=== PATIENT | female | born 1990 | race Native Hawaiian/Other Pacific Islander ===

== ENCOUNTER 2018-09-10 08:16 | Emergency (ER) | payer OTHER ==
[~2018-09-10] VITALS: Ht 160 cm; Wt 77.1 kg
[2018-09-10 09:03] LABS: PLATELET COUNT 428 K/uL (152-353)
[2018-09-10 09:07] LABS: POTASSIUM 3.8 mmol/L (3.6-5.2)
[2018-09-10 11:30] VITALS: BP 119/68; TEMP 97.9
== END 2018-09-10 11:33 | disposition home or self-care (01) ==
LOC: ED 08:16
PROVIDERS: Family Medicine
DX: O23.33 Infections of other parts of urinary tract in pregnancy, third trimester (principal); B96.20 Unspecified Escherichia coli [E. coli] as the cause of diseases classified elsewhere; D72.828 Other elevated white blood cell count
CPT/HCPCS: 36415; 80048; 81000; 85027; 87077; 87086; 87088; 87186; 96360; 96361; 96365; 99284; J0696